=== PATIENT | female | born 1995 | race American Indian/Alaskan Native ===

== ENCOUNTER 2017-05-18 09:07 | Emergency (ER) | payer SELFPAY ==
[2017-05-18 09:36] VITALS: BP 133/77
[2017-05-18] MEDS ORDERED: PROVENTIL IH ONE (09:42)
--- NOTE | 2017-05-18 10:27 | XRay Report ---
Chest 2 views: History: Wheezing. Findings: Normal cardiomediastinal silhouette. Trachea is midline. No consolidation, pneumothorax or pleural effusion. Impression: No acute cardiopulmonary findings.
[2017-05-18] MEDS ORDERED: MOTRIN PO ONE (11:13)
--- NOTE | 2017-05-18 18:42 | Emergency Department Report ---
Entered by JULIA ESCOBAR, acting as scribe for DUTCH OROZCO NP. ED Asthma HPI - General Chief Complaint: Adult Asthma Stated Complaint: ELIZABETH Time Seen by Provider: 05/18/17 11:11 Source: patient Mode of arrival: Ambulatory Limitations: No Limitations - History of Present Illness Initial Comments: This is a 22 y/o female, nontoxic, well nourished in appearance, no acute signs of distress presents with asthma flare up x 1 day. Patient stated has a history of these episodes and take her albuterol inh and symptoms subsides. Patient stated does not have anymore albuterol and wants a refil. Associated symptoms include wheezing with cough with yellow/green sputum and rhinorrhea. Patient stated gets asthma exacerbation during "cold". Patient denies fever, chills, chest pain, shortness of breathe, hemoptysis, calf pain, calf tenderness, headache, stiff neck, numbness, tingling, n/v, or sore throat. She gave on 02/19/17 and is not breast feeding. Patient states she ran out of inhaler and nebulizer meds. No alleviating or aggravating factors. Denies any allergies. Denies PMH. MD Complaint: "asthma attack" Onset/Timin -: days(s) Asthma History: childhood onset Severity: mild Context: none known Associated Symptoms: productive cough, other (cough, wheezing, rhinorrhea). denies: fever, chest pain, hemoptysis, leg edema, syncope - Related Data Current Asthma Therapy: none Previous Rx's Medication Instructions Recorded Last Taken Type ALBUTEROL Inhaler [ProAir HFA 2 puff IH QID PRN #1 inhalation 05/18/17 Unknown Rx Inhaler] Azithromycin [Zithromax Z-CHRIS] 250 mg PO DAILY #6 tablet 05/18/17 Unknown Rx predniSONE [Deltasone] 20 mg PO BID #10 tab 05/18/17 Unknown Rx Allergies Allergy/AdvReac Type Severity Reaction Status Date / Time No Known Allergies Allergy Unverified 05/18/17 09:32 ED Review of Systems Comment: All other systems reviewed and negative Constitutional: denies: chills, fever Eyes: denies: eye pain, eye discharge, vision change ENT: other (rhinorrhea ). denies: throat pain Respiratory: cough (with yellow/green sputum), wheezing. denies: shortness of breath, SOB with exertion, SOB at rest Cardiovascular: denies: chest pain, palpitations Endocrine: no symptoms reported Gastrointestinal: denies: abdominal pain, nausea, diarrhea Genitourinary: denies: urgency, dysuria, discharge Musculoskeletal: denies: back pain, joint swelling, arthralgia Skin: denies: rash, lesions Neurological: denies: headache, weakness, paresthesias Psychiatric: as per HPI Hematological/Lymphatic: denies: easy bleeding, easy bruising ED Past Medical Hx - Past Medical History Hx Asthma: Yes - Surgical History Past Surgical History?: No - Social History Smoking Status: Never Smoker Substance Use Type: None - Medications Home Medications: Home Medications Medication Instructions Recorded Confirmed Last Taken Type ALBUTEROL Inhaler [ProAir HFA 2 puff IH QID PRN #1 inhalation 05/18/17 Unknown Rx Inhaler] Azithromycin [Zithromax Z-CHRIS] 250 mg PO DAILY #6 tablet 05/18/17 Unknown Rx predniSONE [Deltasone] 20 mg PO BID #10 tab 05/18/17 Unknown Rx ED Physical Exam - General Limitations: No Limitations General appearance: alert, in no apparent distress - Head Head exam: Present: atraumatic, normocephalic, normal inspection - Eye Eye exam: Present: normal appearance, PERRL, EOMI. Absent: scleral icterus, conjunctival injection, nystagmus, periorbital swelling, periorbital tenderness Pupils: Present: normal accommodation - ENT ENT exam: Present: normal exam, normal orophraynx, mucous membranes moist, TM's normal bilaterally, normal external ear exam - Neck Neck exam: Present: normal inspection, full ROM. Absent: tenderness, meningismus, lymphadenopathy, thyromegaly - Respiratory Respiratory exam: Present: normal lung sounds bilaterally, wheezes (bilateral upper and lower lobes). Absent: respiratory distress, rales, rhonchi, stridor, chest wall tenderness, accessory muscle use, decreased breath sounds, prolonged expiratory - Cardiovascular Cardiovascular Exam: Present: regular rate, normal rhythm, normal heart sounds. Absent: bradycardia, tachycardia, irregular rhythm, systolic murmur, diastolic murmur, rubs, gallop - GI/Abdominal GI/Abdominal exam: Present: soft, normal bowel sounds. Absent: distended, tenderness, guarding, rebound, rigid, diminished bowel sounds - Rectal Rectal exam: Present: deferred - Extremities Exam Extremities exam: Present: normal inspection, full ROM. Absent: tenderness, normal capillary refill, pedal edema, joint swelling, calf tenderness - Back Exam Back exam: Present: normal inspection, full ROM. Absent: tenderness, CVA tenderness (R), CVA tenderness (L), muscle spasm, paraspinal tenderness, vertebral tenderness, rash noted - Neurological Exam Neurological exam: Present: alert, oriented X3, CN II-XII intact, normal gait, reflexes normal - Psychiatric Psychiatric exam: Present: normal affect, normal mood - Skin Skin exam: Present: warm, dry, intact, normal color. Absent: rash ED Course Vital Signs 05/18/17 05/18/17 05/18/17 09:32 09:47 10:12 Temperature 99.0 F Pulse Rate 106 H Pulse Rate [ 103 H 123 H Posterior Bilateral Throughout] Respiratory 17 Rate Respiratory 20 20 Rate [Posterior Bilateral Throughout] Blood Pressure 133/77 O2 Sat by Pulse 98 Oximetry - Reevaluation(s) Reevaluation #1: 05/18/17 11:35 Patient is able to speak in full sentences with no signs of distress noted. Reevaluation #2: 05/18/17 11:41 patient stated is feels much better after DuoNeb/Solu-Medrol treatment ED Medical Decision Making - Medical Decision Making ED course: This is a 22-year-old female that presents with asthma exacerbation 1- patient was examined myself. Prior to my interview patient was treated with DuoNeb. Patient stated he feels much better and breathing is much better. Patient is able to speak in full sentences with no signs of distress noted. 2- patient received Solu-Medrol 125 mg IM in the ED 3- chest x-ray has been obtained with negative findings as per radiologist. Patient was notified of x-ray findings when the further questions noted by the patient. 4- patient was discharged with albuterol inhaler as well as prednisone for 5 days. Patient was instructed to follow-up with a primary care doctor in 24 hours for a proper treatment of asthma exacerbations or if symptoms worsen such as shortness of breath, increased wheezing, difficulty breathing, chest pain, fever, chills, nausea or vomiting return to emergency room as soon as possible. 5- At time time of discharge, the patient does not seem toxic or ill in appearance. No acute signs of distress noted. Patient agrees to discharge treatment plan of care. No further questions noted by the patient. 6- patient also received Zpak. ED Disposition Clinical Impression: Asthma exacerbation Disposition: DC-01 TO HOME OR SELFCARE Is pt being admited?: No Does the pt Need Aspirin: No Condition: Stable Instructions: Albuterol (By breathing), Prednisone (By mouth), Azithromycin ( By mouth), Asthma (ED) Additional Instructions: follow-up with a primary care doctor in 24 hours for a proper treatment of asthma exacerbations or if symptoms worsen such as shortness of breath, increased wheezing, difficulty breathing, chest pain, fever, chills, nausea or vomiting return to emergency room as soon as possible. Take full course of prednisone/Z-Chris as prescribed. Take albuterol as needed during wheezing/difficulty breathing. Prescriptions: ALBUTEROL Inhaler [ProAir HFA Inhaler] 2 puff IH QID PRN #1 inhalation PRN Reason: Shortness Of Breath Azithromycin [Zithromax Z-CHRIS] 250 mg PO DAILY #6 tablet predniSONE [Deltasone] 20 mg PO BID #10 tab Referrals: PRIMARY CARE, [Primary Care Provider] - 3-5 Days DANE PERKINS MD [Staff Physician] - 3-5 Days [facility] [Outside] - 3-5 Days [facility] [Outside] - 3-5 Days Forms: Work/School Release Form(ED) This documentation as recorded by the SHAWN trinh ELIZABETH,accurately reflects the service I personally performed and the decisions made by ,DUTCH OROZCO, MECHANIC MARINE ENGINE.
== END 2017-05-18 12:01 | disposition home or self-care (01) ==
LOC: ED 09:07
DX: J45.901 Unspecified asthma with (acute) exacerbation (principal)
CPT/HCPCS: 71020; 94640; 96372; 99284; J2930

== ENCOUNTER 2018-05-22 02:38 | Emergency (ER) | payer OTHER ==
[2018-05-22] MEDS ORDERED: NACL 0.9% 1000 ML 1,000 ML IV ONE (03:05)
[2018-05-22 04:19] LABS: Basophils % (Auto) 0.1 % (0.0-1.8); Eosinophils # (Auto) 0.2 K/mm3 (0.0-0.4); Eosinophils % (Auto) 1.6 % (0.0-4.3); Hematocrit 34.7 % (30.3-42.9); Hemoglobin 11.1 gm/dl (10.1-14.3); Lymphocytes # (Auto) 1.9 K/mm3 (1.2-5.4); Lymphocytes % (Auto) 16.8 % (13.4-35.0); Mean Corpuscular HGB Conc 32 % (30-34); Mean Corpuscular Hemoglobin 26 pg (28-32); Mean Corpuscular Volume 82 fl (79-97); Monocytes # (Auto) 0.7 K/mm3 (0.0-0.8); Monocytes % (Auto) 5.9 % (0.0-7.3); Platelet Count 246 K/mm3 (140-440); Red Blood Count 4.25 M/mm3 (3.65-5.03); Red Cell Distribution Width 16.1 % (13.2-15.2)
[2018-05-22 04:35] LABS: Alanine Aminotransferase 9 units/L (7-56); Albumin 3.9 g/dL (3.9-5); BUN/Creatinine Ratio 10; Blood Urea Nitrogen 5 mg/dL (7-17); Calcium 9.4 mg/dL (8.4-10.2); Hemolysis Index 0
--- NOTE | 2018-05-22 06:20 | Ultrasound Report ---
FINAL REPORT EXAM: US OB > = 14 WEEKS FETUS HISTORY: +hcg abd pain COMPARISONS: None. FINDINGS: Transabdominal grayscale, M-mode and color Doppler 2nd trimester ultrasound Single living intrauterine with recorded cardiac activity of 156 beats per minute. Amniotic fluid volume is subjectively normal. The cervix appears closed and measures in the 4-5 centimeter range. The placenta is anterior fundal. No evident previa is demonstrated on this exam. A single transverse image of the mid placenta shows mild hypoechoic irregularity, which may be a venous morris or contraction. The remaining images of the placenta are homogeneous and normal. Biparietal diameter is 3.5 cm Head circumference is 12.8 cm Abdominal circumference is 11.7 cm Femoral length is 2.4 cm Estimated gestational age based on composite of biometric measurements is 17 weeks 0 days with delivery date of 10/30/2018. Imaged portions of the anatomy are grossly unremarkable. IMPRESSION: Limited 2nd trimester ultrasound shows a single living intrauterine with estimated gestational age of 17 weeks 0 days corresponding to delivery date of 10/30/2018. A single transverse image of the mid placenta shows mild hypoechoic irregularity, which most likely is due to a venous Morris or contraction. No retroplacental hemorrhage or evidence of abruption. In the absence of additional clinical symptoms, close attention to the placenta on anatomy scan at 20-22 weeks gestational age is recommended.
[2018-05-22] MEDS ORDERED: TYLENOL PO ONE (06:54)
--- NOTE | 2018-05-22 06:54 | Emergency Department Report ---
ED Abdominal Pain HPI - General Chief Complaint: Abdominal Pain Stated Complaint: RT SIDE PAIN PAINFUL TO URINATE Time Seen by Provider: 05/22/18 06:39 Source: patient Mode of arrival: Ambulatory Limitations: No Limitations - History of Present Illness MD Complaint: flank pain -: This morning Location: R flank Radiation: none Migration to: no migration Severity: mild Severity scale (0 -10): 3 Quality: sharp Improves With: nothing Worsens With: nothing Associated Symptoms: nausea, dysuria. denies: vomiting, diarrhea, chills - Related Data LMP (females 10-50): Previous Rx's Medication Instructions Recorded Last Taken Type ALBUTEROL Inhaler [ProAir HFA 2 puff IH QID PRN #1 inhalation 05/18/17 Unknown Rx Inhaler] Azithromycin [Zithromax Z-TASHIA] 250 mg PO DAILY #6 tablet 05/18/17 Unknown Rx predniSONE [Deltasone] 20 mg PO BID #10 tab 05/18/17 Unknown Rx Acetaminophen [Tylenol Extra 500 mg PO Q8H PRN #30 tablet 05/22/18 Unknown Rx Strength] Cephalexin [Keflex] 500 mg PO Q8HR 12 Days #36 cap 05/22/18 Unknown Rx Metoclopramide [Reglan] 10 mg PO BID PRN #20 tab 05/22/18 Unknown Rx metroNIDAZOLE 0.75%(NF) [Metrogel 1 applicatio VG BID #1 tube 05/22/18 Unknown Rx 0.75% TOPICAL] Allergies Allergy/AdvReac Type Severity Reaction Status Date / Time No Known Allergies Allergy Unverified 05/18/17 09:32 ED Review of Systems ROS: Stated complaint: RT SIDE PAIN PAINFUL TO URINATE Other details as noted in HPI Comment: All other systems reviewed and negative Constitutional: denies: chills, fever Eyes: denies: eye pain, eye discharge ENT: denies: ear pain, throat pain, dental pain Respiratory: denies: cough, orthopnea, shortness of breath Cardiovascular: denies: chest pain, palpitations Endocrine: no symptoms reported Gastrointestinal: abdominal pain, nausea. denies: vomiting, diarrhea, constipation Genitourinary: denies: urgency, dysuria, frequency Musculoskeletal: denies: back pain, joint swelling Skin: denies: rash, lesions, change in color Neurological: denies: headache, weakness, numbness Psychiatric: denies: anxiety, depression Hematological/Lymphatic: denies: easy bleeding, easy bruising ED Past Medical Hx - Past Medical History Previous Medical History?: Yes Hx Asthma: Yes - Surgical History Past Surgical History?: No - Social History Smoking Status: Never Smoker Substance Use Type: None - Medications Home Medications: Home Medications Medication Instructions Recorded Confirmed Last Taken Type ALBUTEROL Inhaler [ProAir HFA 2 puff IH QID PRN #1 inhalation 05/18/17 Unknown Rx Inhaler] Azithromycin [Zithromax Z-TASHIA] 250 mg PO DAILY #6 tablet 05/18/17 Unknown Rx predniSONE [Deltasone] 20 mg PO BID #10 tab 05/18/17 Unknown Rx Acetaminophen [Tylenol Extra 500 mg PO Q8H PRN #30 tablet 05/22/18 Unknown Rx Strength] Cephalexin [Keflex] 500 mg PO Q8HR 12 Days #36 cap 05/22/18 Unknown Rx Metoclopramide [Reglan] 10 mg PO BID PRN #20 tab 05/22/18 Unknown Rx metroNIDAZOLE 0.75%(NF) [Metrogel 1 applicatio VG BID #1 tube 05/22/18 Unknown Rx 0.75% TOPICAL] ED Physical Exam - General Limitations: No Limitations General appearance: alert, in no apparent distress - Head Head exam: Present: atraumatic, normocephalic, normal inspection - Eye Eye exam: Present: normal appearance, PERRL, EOMI Pupils: Present: normal accommodation - ENT ENT exam: Present: normal exam, normal orophraynx, mucous membranes moist - Neck Neck exam: Present: normal inspection, full ROM. Absent: tenderness - Respiratory Respiratory exam: Present: normal lung sounds bilaterally. Absent: respiratory distress, wheezes, rales, rhonchi, stridor - Cardiovascular Cardiovascular Exam: Present: regular rate, normal rhythm, normal heart sounds - GI/Abdominal GI/Abdominal exam: Present: soft, normal bowel sounds, other (Gravid). Absent: tenderness, guarding, rebound, rigid - External exam: Present: normal external exam Speculum exam: Present: vaginal discharge. Absent: vaginal bleeding, tissue, laceration Bi-manual exam: Present: normal bi-manual exam, uterine enlargement, other ( [place] was Ms. Michelle RN.). Absent: adnexal tenderness, adnexal mass, uterine tenderness - Extremities Exam Extremities exam: Present: normal inspection, full ROM, normal capillary refill. Absent: tenderness, pedal edema, joint swelling, calf tenderness - Back Exam Back exam: Present: normal inspection, full ROM. Absent: tenderness, CVA tenderness (R), CVA tenderness (L) - Neurological Exam Neurological exam: Present: alert, oriented X3, CN II-XII intact - Psychiatric Psychiatric exam: Present: normal affect, normal mood - Skin Skin exam: Present: warm, dry, intact, normal color. Absent: rash ED Course Vital Signs 05/22/18 05/22/18 05/22/18 02:38 07:06 08:41 Temperature 98.3 F 98.2 F Pulse Rate 102 H 94 H Respiratory 20 20 18 Rate Blood Pressure 150/93 Blood Pressure 116/57 [Left] O2 Sat by Pulse 99 100 99 Oximetry - Reevaluation(s) Reevaluation #1: 05/22/18 11:32 Patient is feeling better and she will be discharged to follow up with an [facility] for . ED Medical Decision Making - Lab Data Result diagrams: 05/22/18 03:36 05/22/18 03:36 - Radiology Data Radiology results: report reviewed, image reviewed - Medical Decision Making Abdominal Pain in . Urinary Tract Infection. PID. Critical care attestation.: If time is entered above; I have spent that time in minutes in the direct care of this critically ill patient, excluding procedure time. ED Disposition Clinical Impression: Bacterial vaginosis, Abdominal pain during intrauterine UTI (urinary tract infection) Qualifiers: Urinary tract infection type: acute cystitis Hematuria presence: without hematuria Qualified Code(s): N30.00 - Acute cystitis without hematuria Disposition: - TO HOME OR SELFCARE Is pt being admited?: No Does the pt Need Aspirin: No Condition: Stable Instructions: Bacterial Vaginosis (ED), Urinary Tract Infection in Women (ED), Abdominal Pain (ED) Additional Instructions: Please follow up with OBGYN DR Kami Cummins on Friday morning. Return to the ED if your condition worsens. Prescriptions: Acetaminophen [Tylenol Extra Strength] 500 mg PO Q8H PRN #30 tablet PRN Reason: pain Cephalexin [Keflex] 500 mg PO Q8HR 12 Days #36 cap Metoclopramide [Reglan] 10 mg PO BID PRN #20 tab PRN Reason: Nausea And Vomiting metroNIDAZOLE 0.75%(NF) [Metrogel 0.75% TOPICAL] 1 applicatio VG BID #1 tube Referrals: PRIMARY CARE, [Primary Care Provider] - 3-5 Days KAMI CUMMINS MD [Staff Physician] - 3-5 Days Forms: STI Treatment and Prevention Time of Disposition: 10:44
[2018-05-22 08:24] LABS: Bacteria,Urine 2+ /HPF (Negative); Bilirubin,Urine NEG (Negative); Blood,Urine MOD (Negative); Color,Urine Amber (Yellow); Mucus,Urine 3+ /HPF; Urobilinogen,Urine < 2.0 mg/dL (<2.0)
[2018-05-22 08:25] LABS: RBC,Urine > 182.0 /HPF (0.0-6.0)
[2018-05-22 08:45] VITALS: BP 116/57
[2018-05-22] MEDS ORDERED: ROCEPHIN/NS 1 GM/50 ML 1 GM/50 ML BAG IV ONE (10:11)
== END 2018-05-22 12:04 | disposition home or self-care (01) ==
LOC: ED 02:38
DX: O23.592 Infection of other part of genital tract in pregnancy, second trimester (principal); O23.42 Unspecified infection of urinary tract in pregnancy, second trimester; O99.512 Diseases of the respiratory system complicating pregnancy, second trimester; J45.909 Unspecified asthma, uncomplicated; Z3A.17 17 weeks gestation of pregnancy
CPT/HCPCS: 36415; 76805; 80053; 81001; 83690; 84702; 85025; 86850; 86900; 86901; 87210; 87591; 96365; 99285; J0696; J7030

== ENCOUNTER 2019-08-04 15:25 | Emergency (ER) | payer SELFPAY ==
[2019-08-04 15:48] VITALS: BP 125/76
--- NOTE | 2019-08-04 16:22 | Event Note ---
ED Screening Note Date of service: 08/04/19 Time: 16:22 ED Screening Note: 24 y/o female comes in for dizziness. Increase thirst and urinary frequency. Hx/o Gestational DM and HTN This initial assessment/diagnostic orders/clinical plan/treatment(s) is/are subject to change based on patients health status, clinical progression and re- assessment by fellow clinical providers in the ED. Further treatment and workup at subsequent clinical providers discretion. Patient/guardian urged not to elope from the ED as their condition may be serious if not clinically assessed and managed. Initial orders include:
[2019-08-04 19:35] LABS: HCG Qualitative,Urine Negative (Negative)
== END 2019-08-04 18:50 | disposition left against medical advice (07) ==
LOC: ED 15:25
DX: R42 Dizziness and giddiness (principal); Z53.21 Procedure and treatment not carried out due to patient leaving prior to being seen by health care provider
CPT/HCPCS: 81025; 82962

== ENCOUNTER 2021-12-16 13:42 | Emergency (ER) | payer SELFPAY ==
[2021-12-16 14:45] VITALS: BP 141/68
[2021-12-16 17:12] LABS: Bacteria,Urine 1+ /HPF (Negative); Bilirubin,Urine NEG (Negative); Blood,Urine NEG (Negative); Color,Urine Yellow (Yellow); Mucus,Urine 2+ /HPF; Protein,Urine <15 mg/dL mg/dL (Negative); Urobilinogen,Urine < 2.0 mg/dL (<2.0)
== END 2021-12-16 17:28 | disposition left against medical advice (07) ==
LOC: ED 13:42
DX: M54.9 Dorsalgia, unspecified (principal); Z53.21 Procedure and treatment not carried out due to patient leaving prior to being seen by health care provider
CPT/HCPCS: 81001; 87086